=== PATIENT | male | born 1990 | race Caucasian/White ===

== ENCOUNTER 2018-05-15 12:32 | Emergency (ER) | payer OTHER ==
[~2018-05-15] VITALS: Ht 177.8 cm; Wt 103.4 kg
[2018-05-15 12:38] VITALS: BP 130/78
--- NOTE | 2018-05-15 13:04 | NUR ---
PT AMBULATES TO BED 10
--- NOTE | 2018-05-15 13:10 | NUR ---
27/M C/O CUT L PINKY FINGER AT WORK ON [employer]. PT STATES TINGLING/NUMBNESS IN PINKY FINGER. SHARP PAIN AT 7/10. BANDAGE ON FINGER PUT ON 15 MIN AGO SATURATED WITH BLOOD. PATIENT POSITIONED FOR COMFORT; HOB ELEVATED; BEDRAILS UP X2; BED DOWN. AMY WANG MADE AWARE OF PT STATUS. Addendum: 05/15/18 at 1547 by [facility] PT REPORTED GOT TDAP 4 YEARS AGO.
[2018-05-15] MEDS ORDERED: LIDOCAINE 2% 1000 MG/50 ML VIAL INJ ONE (13:40)
[2018-05-15] MEDS: LIDOCAINE 2% 100 MG/5 ML UJET TP ONE ×2 (14:42→14:57)
--- NOTE | 2018-05-15 14:47 | NUR ---
X RAY AT BEDSIDE
[2018-05-15 15:53] VITALS: BP 135/77
== END 2018-05-15 15:53 | disposition home or self-care (01) ==
LOC: MED 12:32
DX: S61.217A Laceration without foreign body of left little finger without damage to nail, initial encounter (principal); W26.8XXA Contact with other sharp object(s), not elsewhere classified, initial encounter; Y93.89 Activity, other specified; Y92.89 Other specified places as the place of occurrence of the external cause; Y99.8 Other external cause status
CPT/HCPCS: 12002; 73140; 99283; J2001; Q0092